=== PATIENT | female | born 1995 | race Hispanic/Latino ===

== ENCOUNTER 2018-01-17 12:28 | Inpatient (IN) | payer MEDICAID, OTHER, SELFPAY ==
[2018-01-17] MEDS ORDERED: Ondansetron PF 4 MG/2 ML Vial ONE (13:04)
[2018-01-17 13:10] LABS: Hemoglobin 7.9 g/dL (12.0-16.0); Mean Corpuscular HGB CONC 28.2 g/dL (32.0-36.0); Mean Corpuscular Hemoglobin 16.7 pg (25.0-35.0); Mean Corpuscular Volume 59.3 fL (78.0-98.0); Mean Platelet Volume 6.5 fL (7.4-10.4); Platelet Count 258 thou/uL (130-400); Red Blood Cell (RBC) Count 4.72 mill/uL (4.00-5.20); White Blood Cell (WBC) Count 24.8 thou/uL (4.8-10.8)
[2018-01-17 13:30] LABS: ALT (SGPT) 10 U/L (8-55); AST (SGOT) 16 U/L (5-34); Albumin 4.4 g/dL (3.5-5.0); Alkaline Phosphatase 80 U/L (40-150); Anion Gap 16 mmol/L (10-20); BUN (Urea Nitrogen) 10 mg/dL (7.0-18.7); Bilirubin, Total 1.3 mg/dL (0.2-1.2); Calc. Creatinine Clearance 0 mL/min (70-130); Calcium 9.6 mg/dL (7.8-10.44); Carbon Dioxide 21 mmol/L (22-29); Chloride 100 mmol/L (98-107); Estimated GFR-MDRD 75; Globulin 3.9 g/dL (2.4-3.5); Glucose 122 mg/dL (70-105); Lipase Less than 4 U/L (8-78); Potassium 3.5 mmol/L (3.5-5.1); Protein, Total 8.3 g/dL (6.0-8.3); Sodium 133 mmol/L (136-145)
[2018-01-17] MEDS ORDERED: ISOVUE-370 76%-LOCM 1 ML ONE (13:30)
[2018-01-17 13:35] LABS: Anisocytosis SLIGHT = 6-15 cells (100X) (0-5/hpf); Band 10 % (5-11); Elliptocytes SLIGHT = 2-5 cells (100X) (0-1/hpf); Hypochromia MODERATE=16-30 cells (100X) (0-5/hpf); Large Platelets SLIGHT; Lymphocytes 1 % (28-48); MDiff Complete? YES; Microcytosis MODERATE=15-30 cells (100X) (0-5/hpf); Monocytes 2 % (0-4); Neutrophil 86 % (31-61); Ovalocytes SLIGHT = 2-5 cells (100X) (0-1/hpf); PLT Morphology Comment Appears Adequate; Poikilocytosis SLIGHT = 6-15 cells (100X) (0-5/hpf); Polychromasia SLIGHT = 2-3 cells (100X) (0-2/hpf); Reactive Lymphocytes 1 % (0-10); Reflex for Review?? YES; Stomatocytes SLIGHT = 2-5 cells (100X) (0-1/hpf); Tear Drops SLIGHT = 2-5 cells (100X) (0-1/hpf)
[2018-01-17] MEDS ORDERED: Acetaminophen 500 MG TAB ONE (13:38)
[2018-01-17 13:39] LABS: Bilirubin Negative (Negative); Blood, Urine Moderate (Negative); Clarity CLOUDY (Clear); Glucose, Urine (Dipstick) Negative (Negative); Leukocyte Large (Negative); Nitrite Positive (Negative); Protein, Urine (Dipstick) 100 mg/dL (Neg-Trace); Specific Gravity, Urine 1.017 (1.002-1.036)
[2018-01-17 13:41] LABS: Bacteria/HPF 4+ HPF (None Seen); Hyaline Casts/LPF 0-3 HYALINE CAST LPF (0-3 Hyaline); Pathc Cast-AUWi Flag 0.14 (0-2.49)
[2018-01-17 13:44] LABS: Pregnancy Test - Urine (BHCG) Negative (Negative); Pregu Control Background? CLEAR/WHITE (CLR/WHITE); Pregu Control Bar Appear? YES (CONTROL BAR); Specific Gravity 1.017 (1.002-1.036)
--- NOTE | 2018-01-17 14:52 | CT ---
CT OF THE ABDOMEN AND PELVIS WITH CONTRAST: Date: 01/17/18 HISTORY: Right-sided abdominal pain that started three days ago. Fever. TECHNIQUE: Multiple contiguous axial images were obtained in a CT of the abdomen and pelvis with contrast. Coron al reformats were performed. FINDINGS: There is a tiger-striped appearance to the right kidney when compared to the left. Subtle surrounding stranding changes are seen. These findings are consistent with pyelonephritis. No hydronephrosis is seen on either side. The left kidney is unremarkable. The liver, gallbladder, adrenal glands, spleen, and pancreas are unremarkable. The large and small arlene wel are unremarkable. The appendix is unremarkable. The reproductive organs are unremarkable. The osseous structures, visualized inferior thorax, and abdominal wall soft tissues are unremarkable. IMPRESSION: Pyelonephritis of the right kidney. POS: JYOTI
[2018-01-17] MEDS ORDERED: Piperacillin/Tazobactam 4.5 GM VIAL ONE (15:01)
[2018-01-17] MEDS ORDERED: cefTRIAXone\\ROCEPHIN 2 GM VIAL ONE (15:01)
[2018-01-17] MEDS ORDERED: Acetaminophen 325 MG TAB PO PRN (17:07)
[2018-01-17] MEDS ORDERED: Ondansetron ODT 4 MG TAB SL PRN (17:07)
[2018-01-17] MEDS ORDERED: Ondansetron PF 4 MG/2 ML Vial IVP PRN ×2 (17:07→17:25)
[2018-01-17 17:09] LABS: Lactic Acid 1.3 mmol/L (0.5-2.2)
[2018-01-17] MEDS ORDERED: Guaifenesin DM 100-10/5 ML UDCUP PO PRN (17:25)
[2018-01-17] MEDS: Sodium Chloride 0.9% 1,000 ML IV SCH (18:14)
[2018-01-17 18:23] LABS: Iron 9 ug/dL (50-170); Iron Binding Capacity, Total 395 mcg/dL (265-497)
[2018-01-17] MEDS: Acetaminophen 325 MG TAB PO PRN (21:14)
[2018-01-17] MEDS: Famotidine 20 MG TAB PO SCH (21:15)
[2018-01-17] MEDS: Cefepime 1 GM in Sodium Chloride 0.9% 100 ML IVPB SCH (21:17)
[2018-01-18 04:36] LABS: Anion Gap 11 mmol/L (10-20); BUN (Urea Nitrogen) 9 mg/dL (7.0-18.7); Calc. Creatinine Clearance 0 mL/min (70-130); Calcium 8.3 mg/dL (7.8-10.44); Carbon Dioxide 19 mmol/L (22-29); Chloride 109 mmol/L (98-107); Estimated GFR-MDRD Greater than 90; Glucose 83 mg/dL (70-105); Potassium 3.1 mmol/L (3.5-5.1); Sodium 136 mmol/L (136-145)
[2018-01-18 04:38] LABS: Band 11 % (5-11); Hemoglobin 6.1 g/dL (12.0-16.0); Hypochromia SLIGHT = 6-15 cells (100X) (0-5/hpf); Lymphocytes 5 % (28-48); MDiff Complete? YES; Mean Corpuscular HGB CONC 27.5 g/dL (32.0-36.0); Mean Corpuscular Hemoglobin 16.6 pg (25.0-35.0); Mean Corpuscular Volume 60.2 fL (78.0-98.0); Mean Platelet Volume 6.5 fL (7.4-10.4); Monocytes 10 % (0-4); Neutrophil 74 % (31-61); PLT Morphology Comment Appears Adequate; Platelet Count 208 thou/uL (130-400); Polychromasia SLIGHT = 2-3 cells (100X) (0-2/hpf); RBC Distribution Width 17.8 % (11.5-14.5); Red Blood Cell (RBC) Count 3.68 mill/uL (4.00-5.20); White Blood Cell (WBC) Count 25.6 thou/uL (4.8-10.8)
[2018-01-18 07:26] LABS: Reticulocyte Count 1.1 % (0.5-1.5)
[2018-01-18] MEDS: Sodium Chloride 0.9% 1,000 ML IV SCH (07:38)
--- NOTE | 2018-01-18 07:40 | HP ---
REASON FOR ADMISSION: Right-sided pyelonephritis, sepsis. HISTORY OF PRESENTING ILLNESS: The patient gives history of abdominal pain in the right lower quadra nt, radiating to the back. This was 10/10 in intensity and was colicky in nature. She has been gett ing this off and on from last 3 days. The patient has had severe nausea and has been vomiting from t he last 2 days now. No complaints of diarrhea. Has some urinary frequency, but no urgency as such. The patient had fever at home and had fever of 103 here in the ER. No prior history of recurrent ur inary tract infections. No prior history of stones in the urinary tract. PAST MEDICAL AND SURGICAL HISTORY: The patient has chronic anemia, history of asthma. CURRENT MEDICATIONS: vitamin and ferrous sulfate. ALLERGIES: No known drug allergies. PERSONAL HISTORY: Smokes 5-6 cigarettes a day, does not abuse alcohol or drugs. FAMILY HISTORY: Mother has history of ovarian cyst and gallstones. She does not know much about her father. CODE STATUS: FULL. REVIEW OF SYSTEMS: The following complete review of systems was negative, unless otherwise mentioned in the HPI or below: Constitutional: Weight loss or gain, ability to conduct usual activities. Sk in: Rash, itching. Eyes: Double vision, pain. ENT/Mouth: Nose bleeding, neck stiffness, pain, te nderness. Cardiovascular: Palpitations, dyspnea on exertion, orthopnea. Respiratory: Shortness of breath, wheezing, cough, hemoptysis, fever or night sweats. Gastrointestinal: Poor appetite, abdom inal pain, heartburn, nausea, vomiting, constipation, or diarrhea. Genitourinary: Urgency, frequenc y, dysuria, nocturia. Musculoskeletal: Pain, swelling. Neurologic/Psychiatric: Anxiety, depressio n. Allergy/Immunologic: Skin rash, bleeding tendency. PHYSICAL EXAMINATION: GENERAL: The patient is a 22-year-old female, who is currently not in any acute distress. VITAL SIGNS: Blood pressure 128/78, pulse 120 per minute, respiratory rate 20 per minute, temperatur e 103.2 degrees Fahrenheit, saturating 99% on room air. NECK: Supple, no elevated JVD. HEENT: Eyes: Extraocular muscles intact, pupils reacting to light. Oral cavity: Mucous membranes are dry. No exudates or congestion. CARDIOVASCULAR SYSTEM: S1, S2 heard. Regular rhythm. RESPIRATORY SYSTEM: Air entry 2+ bilateral. No rales or rhonchi. ABDOMEN: Soft, bowel sounds heard. There is mild tenderness in the right lower quadrant. No rigidi ty or guarding. There is mild CVA tenderness on the right. EXTREMITIES: No peripheral edema or calf tenderness. VASCULAR SYSTEM: Peripheral pulses 1+ bilateral. No ischemic ulcerations or gangrene. CENTRAL NERVOUS SYSTEM: No gross focal deficits noted. The patient is alert, awake, oriented well. PSYCHIATRIC SYSTEM: The patient's mood is euthymic. No hallucinations or delusions. LABORATORY AND X-RAY FINDINGS: CT of the abdomen and pelvis with contrast done shows pyelonephritis of the right kidney. UA shows positive nitrite, large leukocyte esterase, greater than 50 wbc's and 4+ bacteria. Urine test is negative. Influenza A and B antigens are negative. White coun t of 24, H&H 7.9 and 28, platelet count 258 with 86% neutrophils and 10% bands. Sodium 133, serum bi carbonate 21, BUN 10, creatinine 0.9. Serum glucose 122. Lactic acid 2.5, albumin is 4.4, lipase is less than 4. CLINICAL IMPRESSION AND PLAN: The patient will be admitted to medical floor for sepsis, right pyelon ephritis. She will be on normal saline at 80 mL per hour. Blood and urine cultures have been obtain ed. She will be on cefepime and Levaquin for dual gram negative coverage and for possible resistant Pseudomonas. We will obtain iron studies and continue her ferrous sulfate as before. We will contin ue to closely monitor her on medical floor. Code status was discussed and she is a FULL CODE.
[2018-01-18 08:08] LABS: Folate (Folic Acid) 9.4 ng/mL (7.0-31.4)
[2018-01-18] MEDS: Prenatal Vitamin 1 TAB PO SCH (08:40)
[2018-01-18] MEDS: Famotidine 20 MG TAB PO SCH ×2 (08:40→19:30)
[2018-01-18] MEDS: Enoxaparin Sodium 40 MG/0.4 ML SYRINGE SC SCH (08:40)
[2018-01-18] MEDS: Cefepime 1 GM in Sodium Chloride 0.9% 100 ML IVPB SCH ×2 (08:41→19:30)
[2018-01-18] MEDS: Ferrous Sulfate 325 MG TAB PO SCH (08:41)
[2018-01-18] MEDS: Acetaminophen 325 MG TAB PO PRN ×2 (08:44→18:30)
--- NOTE | 2018-01-18 11:39 | PDOC.PN ---
- Subjective Encounter Start Date: 01/18/18 Encounter Start Time: 11:00 Subjective: abd pain is better, no nausea but has loss of appetite -: no sob or chest pain -: last delivery was more than 1 yr ago - Objective Resuscitation Status: Resuscitation Status FULL:Full Resuscitation MAR Reviewed: Yes Vital Signs & Weight: Vital Signs (12 hours) Temp Pulse Resp BP BP Pulse Ox 01/18/18 11:23 98.7 F 87 16 96/58 L 100 01/18/18 08:00 98 01/18/18 07:26 98.6 F 96 16 96/60 98 01/18/18 04:00 98.1 F 87 16 99/61 99 01/18/18 00:00 98.5 F 96 16 100/53 L 99 Weight Weight 3.704 oz I&O: 01/17/18 01/18/18 01/19/18 06:59 06:59 06:59 Intake Total 120 1160 Balance 120 1160 Result Diagrams: 01/18/18 05:11 01/18/18 03:38 Phys Exam - Physical Examination HEENT: PERRLA, moist MMs Neck: no JVD, supple Respiratory: no wheezing, no rales Cardiovascular: RRR, no significant murmur Gastrointestinal: soft, no distention, positive bowel sounds Musculoskeletal: no edema, pulses present Neurological: non-focal, moves all 4 limbs Psychiatric: normal affect, A&O x 3 Dx/Plan (1) Sepsis Code(s): A41.9 - SEPSIS, UNSPECIFIED ORGANISM Status: Acute Qualifiers: Sepsis type: Escherichia coli Qualified Code(s): A41.51 - Sepsis due to Escherichia coli [E. coli] (2) severe iron def anemia Status: Chronic (3) Bacteremia Code(s): R78.81 - BACTEREMIA Status: Acute Comment: e.coli (4) Pyelonephritis Code(s): N12 - TUBULO-INTERSTITIAL NEPHRITIS, NOT SPCF ACUTE OR CHRONIC Status: Acute Comment: right side - Plan is on cefepime and levaquin -: await final cultures -: 1 unit prbc transfusion today -: oral iron bid with vit c -: encourage po intake, to amb as tolerated * . Review of Systems - Medications/Allergies Allergies/Adverse Reactions: Allergies Allergy/AdvReac Type Severity Reaction Status Date / Time No Known Allergies Allergy Verified 05/15/14 19:54 Medications: Current Medications Acetaminophen (Tylenol) 650 mg PO Q4H PRN PRN Reason: Headache/Fever/Mild Pain (1-3) Last Admin: 01/18/18 08:44 Dose: 650 mg Enoxaparin Sodium (Lovenox) 40 mg SC 0900 [facility] Last Admin: 01/18/18 08:40 Dose: 40 mg Famotidine (Pepcid) 20 mg PO BID [facility] Last Admin: 01/18/18 08:40 Dose: 20 mg Ferrous Sulfate (Feosol) 325 mg PO QAM-[facility] Last Admin: 01/18/18 08:41 Dose: 325 mg Guaifenesin/Dextromethorphan (Robitussin Dm) 15 ml PO Q4H PRN PRN Reason: Cough Cefepime HCl 1 gm/ Sodium (Chloride) 100 mls @ 200 mls/hr IVPB 0800,2000 [facility] Last Admin: 01/18/18 08:41 Dose: 100 mls Levofloxacin 500 mg/ Device 100 mls @ 100 mls/hr IVPB 1800 [facility] Last Admin: 01/17/18 18:14 Dose: 100 mls Sodium Chloride (Normal Saline 0.9%) 1,000 mls @ 80 mls/hr IV .[id number] [facility] Stop: 01/18/18 18:29 Last Admin: 01/18/18 07:38 Dose: Not Given Ondansetron HCl (Zofran) 4 mg IVP Q6H PRN PRN Reason: Nausea/Vomiting Multivit/Folic Acid/Iron ( Vitamin) 1 tab PO DAILY [facility] Last Admin: 01/18/18 08:40 Dose: 1 tab
[2018-01-18 13:59] VITALS: BMI 21.2
[2018-01-18] MEDS ORDERED: GoLYTELY 4,000 ml Bottle PO SCH (14:00)
--- NOTE | 2018-01-18 14:10 | CON ---
DATE OF CONSULTATION: 01/18/2018. REQUESTING PHYSICIAN: Dr. Blount. REASON FOR CONSULTATION: Severe anemia, possible gastrointestinal bleed. HISTORY OF PRESENT ILLNESS: Ms. Ethel Orozco is a very pleasant 22-year-old woman who was admitte d to the hospital yesterday with acute right-sided pyelonephritis. She had presented with fevers, na usea, weakness, and right-sided abdominal pain over the prior 3 days. Upon admission yesterday, a CT of the abdomen and pelvis demonstrated findings characteristic of right-sided pyelonephritis, but no other significant abnormalities. She was also noted on laboratories to have a severe leukocytosis t o 24.8 and hemoglobin 7.9 with MCV 59.3. This morning, following antibiotics and IV fluids overnight , her hemoglobin declined further rather sharply to 6.0. This is in the absence of any overt bleedin g from anywhere. Looking back, the patient does have a chronic microcytic anemia. Hemoglobin was no claudette to be 5.1 at the delivery of one of her children back in 04/2016. She was told that her anemia w as probably secondary to . She was supposed to be taking oral iron all this time, but she s tates she really has not been doing that. She does like to eat a lot of ice. She denies any hematem esis, hemoptysis, epistaxis, gross hematuria, melena or hematochezia. Her menses are regular and mon thly, though she says they are often quite heavy. Iron studies here do show borderline iron deficien cy with actually normal ferritin level of 34.83, but low iron of 9 and only 2% iron saturation. Curr ently, the patient's abdominal pain is somewhat improved and she is afebrile today. She does complai n of nausea and loss of appetite. REVIEW OF SYSTEMS: Full review of systems including constitutional, head, eyes, ears, nose, throat, GI, , cardiovascular, respiratory, musculoskeletal, and neurologic systems negative except as noted in HPI. PAST MEDICAL HISTORY: Chronic iron deficiency anemia, asthma. ALLERGIES: No known drug allergies. OUTPATIENT MEDICATIONS: 1. vitamin. 2. Ferrous sulfate (patient states she really has not been taking this over the past year). SOCIAL HISTORY: She smokes 5-6 cigarettes a day. No alcohol or drug abuse. FAMILY HISTORY: Her mother had an ovarian cyst and gallstones. PHYSICAL EXAMINATION: VITAL SIGNS: Temperature 98.7, pulse 87, blood pressure 96/58, 100% oxygen saturation on room air. GENERAL: A petite, 22-year-old woman sitting up in bed comfortably in no distress. SKIN: She is a bit pale, no jaundice, no rash visible or palpable. EYES: No scleral icterus. Extraocular movements intact. ENT: Mucous membranes moist, no oral lesions. LYMPH: No submandibular, supraclavicular lymphadenopathy. THYROID: Nontender to palpation. HEART: Regular rate and rhythm. LUNGS: Clear to auscultation bilaterally. ABDOMEN: Bowel sounds present, soft, some tenderness to palpation on the right side of the abdomen, but no guarding, rebound tenderness. EXTREMITIES: No peripheral edema. VESSELS: Radial pulses 2+ bilaterally. NEUROLOGICAL: Cranial nerves II through XII intact bilaterally. No focal deficits. LABORATORY STUDIES: Admission hemoglobin was 7.9 with MCV 59.3, hemoglobin dropped to 6.0 this morni ng, hematocrit is 21.1, WBC 25.6, platelets 208. Peripheral smear shows microcytosis and hypochromia . Sodium 136, potassium 3.1, BUN 9, creatinine 0.70. Lactic acid initially 2.5, now down to 1.3. F erritin is 34.83. Iron is 9. Iron percent saturation is 2, TIBC is 275. Vitamin B12 normal at 321. Folic acid normal at 9.4. Urinalysis shows greater than 50 WBCs and 11-20 RBCs. Urine cultures po sitive for E. coli. IMAGING STUDIES: CT of the abdomen and pelvis performed yesterday on admission demonstrated characte ristic changes of right-sided pyelonephritis. The CT is otherwise normal showing normal liver, gallb ladder, spleen, pancreas, large and small bowel, appendix and reproductive organs. ASSESSMENT AND PLAN: 1. Chronic iron deficiency anemia, severe. 2. Acute right-sided pyelonephritis. The patient's labs are indeed consistent with profound iron de ficiency. Need to consider also the possibility of a hemoglobinopathy. Consider getting a hemoglobi n electrophoresis, though I would wait on this given that she has just had a blood transfusion today. I discussed with the patient that usually iron deficiency anemia at this age is secondary to chroni c heavy menstrual losses. Note that she has not been on iron supplementation as it has been recommen ded in the past. She does not have any overt gastrointestinal bleeding, but we certainly cannot rule out an occult gastrointestinal bleeding lesion. I do think it would be worthwhile to perform EGD an d colonoscopy at some point to rule out occult gastrointestinal bleeding lesion. The patient would p refer to proceed with this during this hospitalization, so we will administer bowel preparation tonig ht and plan for EGD and colonoscopy tomorrow morning. Thank you for the consultation. Please call any time with questions or concerns.
[2018-01-19] MEDS: Acetaminophen 325 MG TAB PO PRN (03:08)
[2018-01-19] MEDS ORDERED: Midazolam HCl 2 mg/2 ml Vial ONE (07:52)
[2018-01-19] MEDS: Cefepime 1 GM in Sodium Chloride 0.9% 100 ML IVPB SCH (08:04)
[2018-01-19] MEDS: Famotidine 20 MG TAB PO SCH ×2 (08:20→20:01)
[2018-01-19] MEDS: Enoxaparin Sodium 40 MG/0.4 ML SYRINGE SC SCH (08:20)
[2018-01-19] MEDS: Prenatal Vitamin 1 TAB PO SCH (08:20)
[2018-01-19] MEDS: Ferrous Sulfate 325 MG TAB PO SCH (08:20)
--- NOTE | 2018-01-19 08:40 | PRG ---
DATE OF SERVICE: 01/19/2018 GI INPATIENT DAILY PROGRESS NOTE SUBJECTIVE: Ms. Orozco had kind of a rough night. She did not sleep well. She has continued to be nauseated and have a bit of right-sided abdominal pain. She also spiked fever last night up to 102.2. She remains on antibiotics. She drinks very little of her bowel prep and did not have good results with this. OBJECTIVE: VITAL SIGNS: Temperature 99.7, T-max overnight was 102.8, pulse 85, blood pressure 117/77, 99% oxygen saturation on room air. GENERAL: A 22-year-old woman in no acute distress, appearing, tired, but alert. HEART: Regular rate and rhythm. LUNGS: Clear to auscultation bilaterally. ABDOMEN: Bowel sounds present, soft, some tenderness to palpation in the right abdomen. No guarding, rebound tenderness. EXTREMITIES: No peripheral edema. LABORATORY STUDIES: No new labs back this morning. ASSESSMENT AND PLAN: 1. Severe iron deficiency anemia. 2. Acute pyelonephritis. Patient continued to spike fevers last night and did not drink her bowel prep. We will need to delay EGD/colonoscopy for another day. I discussed this with the patient who is in agreement. If feeling better this afternoon, we will try to drink the bowel prep this evening for procedure tomorrow. [facility]
[2018-01-19 09:40] LABS: Anion Gap 13 mmol/L (10-20); BUN (Urea Nitrogen) 7 mg/dL (7.0-18.7); Calc. Creatinine Clearance 115 mL/min (70-130); Calcium 8.5 mg/dL (7.8-10.44); Carbon Dioxide 16 mmol/L (22-29); Chloride 109 mmol/L (98-107); Estimated GFR-MDRD Greater than 90; Glucose 85 mg/dL (70-105); Potassium 3.2 mmol/L (3.5-5.1); Sodium 135 mmol/L (136-145)
--- NOTE | 2018-01-19 11:39 | PDOC.PN ---
- Subjective Encounter Start Date: 01/19/18 Encounter Start Time: 07:25 Subjective: no nausea, abd pain is better -: had fever overnight - Objective Resuscitation Status: Resuscitation Status FULL:Full Resuscitation MAR Reviewed: Yes Vital Signs & Weight: Vital Signs (12 hours) Temp Pulse Resp BP Pulse Ox 01/19/18 11:12 98.8 F 69 16 123/81 99 01/19/18 08:00 99 01/19/18 07:30 99.0 F 82 16 112/74 99 01/19/18 05:06 99.7 F H 01/19/18 03:57 101.1 F H 01/19/18 03:10 102.2 F H 85 20 117/77 99 Weight Admit Weight 112 lb 11.2 oz Weight 112 lb 11.2 oz I&O: 01/18/18 01/19/18 01/20/18 06:59 06:59 05:59 Intake Total 120 1760 Balance 120 1760 Result Diagrams: 01/18/18 05:11 01/19/18 09:00 Phys Exam - Physical Examination HEENT: PERRLA, moist MMs Neck: no JVD, supple Respiratory: no wheezing, no rales Cardiovascular: RRR, no significant murmur Gastrointestinal: soft, no distention, positive bowel sounds Musculoskeletal: no edema, pulses present Neurological: non-focal, moves all 4 limbs Psychiatric: normal affect, A&O x 3 Dx/Plan (1) Sepsis Code(s): A41.9 - SEPSIS, UNSPECIFIED ORGANISM Status: Acute Qualifiers: Sepsis type: Escherichia coli Qualified Code(s): A41.51 - Sepsis due to Escherichia coli [E. coli] (2) severe iron def anemia Status: Chronic (3) Bacteremia Code(s): R78.81 - BACTEREMIA Status: Acute Comment: e.coli (4) Pyelonephritis Code(s): N12 - TUBULO-INTERSTITIAL NEPHRITIS, NOT SPCF ACUTE OR CHRONIC Status: Acute Comment: right side - Plan recieved 2 u prbc , encourage po intake -: continue levaquin based on cultures -: tmax of 102 last 24hrs -: for egd/colon when stable -: d/w * . Review of Systems - Medications/Allergies Allergies/Adverse Reactions: Allergies Allergy/AdvReac Type Severity Reaction Status Date / Time No Known Allergies Allergy Verified 05/15/14 19:54 Medications: Current Medications Acetaminophen (Tylenol) 650 mg PO Q4H PRN PRN Reason: Headache/Fever/Mild Pain (1-3) Last Admin: 01/19/18 03:08 Dose: 650 mg Enoxaparin Sodium (Lovenox) 40 mg SC 0900 [facility] Last Admin: 01/19/18 08:20 Dose: 40 mg Famotidine (Pepcid) 20 mg PO BID [facility] Last Admin: 01/19/18 08:20 Dose: 20 mg Ferrous Sulfate (Feosol) 325 mg PO QA-[facility] Last Admin: 01/19/18 08:20 Dose: 325 mg Guaifenesin/Dextromethorphan (Robitussin Dm) 15 ml PO Q4H PRN PRN Reason: Cough Levofloxacin 500 mg/ Device 100 mls @ 100 mls/hr IVPB 1800 [facility] Last Admin: 01/18/18 17:35 Dose: 100 mls Ondansetron HCl (Zofran) 4 mg IVP Q6H PRN PRN Reason: Nausea/Vomiting Polyethylene Glycol/Electrolytes (Golytely) 4,000 ml PO ONE [facility] Stop: 01/19/18 23:00 Multivit/Folic Acid/Iron ( Vitamin) 1 tab PO DAILY [facility] Last Admin: 01/19/18 08:20 Dose: 1 tab
[2018-01-19 11:49] LABS: #Basophils 0.1 thou/uL (0.0-0.2); #Lymphocytes 1.6 thou/uL (1.20-3.40); #Monocytes 2.4 thou/uL (0.11-0.59); #Neutrophils 14.7 thou/uL (1.40-6.50); %Basophils 0.3 % (0.0-1.0); %Eosinophils 0.2 % (0.0-10.0); %Lymphocytes 8.4 % (28.0-48.0); %Monocytes 12.9 % (0.0-4.0); %Neutrophils 78.2 % (31.0-61.0); Anisocytosis MODERATE=16-30 cells (100X) (0-5/hpf); Hemoglobin 9.2 g/dL (12.0-16.0); Hypochromia SLIGHT = 6-15 cells (100X) (0-5/hpf); Large Platelets SLIGHT; MDiff Complete? YES; Mean Corpuscular HGB CONC 29.3 g/dL (32.0-36.0); Microcytosis SLIGHT = 6-15 cells (100X) (0-5/hpf); PLT Morphology Comment Appears Adequate; Platelet Count 212 thou/uL (130-400); Polychromasia SLIGHT = 2-3 cells (100X) (0-2/hpf); Red Blood Cell (RBC) Count 4.63 mill/uL (4.00-5.20); White Blood Cell (WBC) Count 18.7 thou/uL (4.8-10.8)
[2018-01-19] MEDS ORDERED: GoLYTELY 4,000 ml Bottle PO SCH (16:00)
[2018-01-20] MEDS: Acetaminophen 325 MG TAB PO PRN (00:58)
[2018-01-20 04:53] LABS: Band 3 % (5-11); Hemoglobin 9.1 g/dL (12.0-16.0); Hypochromia SLIGHT = 6-15 cells (100X) (0-5/hpf); Lymphocytes 17 % (28-48); MDiff Complete? YES; Mean Corpuscular HGB CONC 29.9 g/dL (32.0-36.0); Mean Corpuscular Hemoglobin 20.5 pg (25.0-35.0); Mean Corpuscular Volume 68.5 fL (78.0-98.0); Mean Platelet Volume 6.8 fL (7.4-10.4); Microcytosis SLIGHT = 6-15 cells (100X) (0-5/hpf); Monocytes 13 % (0-4); Neutrophil 67 % (31-61); PLT Morphology Comment Appears Adequate; Platelet Count 222 thou/uL (130-400); RBC Distribution Width 25.3 % (11.5-14.5); Red Blood Cell (RBC) Count 4.44 mill/uL (4.00-5.20); White Blood Cell (WBC) Count 9.3 thou/uL (4.8-10.8)
[2018-01-20 04:59] LABS: Anion Gap 12 mmol/L (10-20); BUN (Urea Nitrogen) 6 mg/dL (7.0-18.7); Calc. Creatinine Clearance 117 mL/min (70-130); Calcium 8.3 mg/dL (7.8-10.44); Carbon Dioxide 19 mmol/L (22-29); Chloride 107 mmol/L (98-107); Estimated GFR-MDRD Greater than 90; Glucose 72 mg/dL (70-105); Sodium 135 mmol/L (136-145)
--- NOTE | 2018-01-20 09:17 | OP ---
DATE OF PROCEDURE: 01/20/2018. SURGEON: Ryan Sheth M.D. [employer] SURGEON: None. PROCEDURES PERFORMED: 1. EGD with biopsies. 2. Colonoscopy, diagnostic. INDICATION: Severe iron deficiency anemia. MEDICATIONS: See anesthesia record. FINDINGS: After discussion of the risks, benefits and alternatives of the procedure, informed consen t was obtained and witnessed. Pre-endoscopic cardiopulmonary examination was satisfactory. DESCRIPTION OF PROCEDURE: Timeout was performed before sedation was achieved. Sedation was achieved with anesthesia assistance in the endoscopy unit. A Pentax adult upper endoscope was placed into th e oropharynx and passed through the cricopharyngeus under direct visualization. The esophageal mucos a appeared normal throughout with a normal-appearing Z-line. The endoscope was advanced into the sto mach. Forward and retroflexed views of the entire gastric mucosa were obtained. The gastric mucosa appeared normal throughout. The endoscope was advanced beyond the pylorus and into the first and sec ond portions of the duodenum, which also appeared normal. I obtained biopsies from the normal appear ing duodenal mucosa to rule out celiac disease. The upper endoscope was completely withdrawn and the patient was repositioned. Digital rectal exam was performed, which was unremarkable. A Pentax adult colonoscope was inserted i nto the anus and passed forward to the cecum in the usual fashion. The cecal base was identified by the appendiceal orifice as well as the ileocecal valve. The terminal ileum was intubated and the ile al mucosa appeared normal. The colonoscope was then slowly withdrawn in a gradual and circumferentia l manner with careful examination of the entire colonic mucosa. The quality of the prep was good. T he colonic mucosa appeared normal throughout. There was no evidence of any mass lesions, polyps, or bleeding lesions. No old blood or active bleeding in the colon. Retroflexion in the rectum was unre markable. The colonoscope was completely withdrawn and the patient allowed to recover. The patient tolerated the procedure well. There were no immediate post-procedure complications. IMPRESSION: 1. Normal esophagogastroduodenoscopy. Duodenal biopsies obtained to rule out celiac disease. 2. Normal colonoscopy to the terminal ileum. RECOMMENDATIONS: 1. Follow up pathology results of duodenal biopsies. 2. Iron supplementation. 3. Regular diet. GI will sign off. Please call back with any questions or concerns.
[2018-01-20] MEDS: Enoxaparin Sodium 40 MG/0.4 ML SYRINGE SC SCH (10:03)
[2018-01-20] MEDS: Prenatal Vitamin 1 TAB PO SCH (10:03)
[2018-01-20] MEDS: Ferrous Sulfate 325 MG TAB PO SCH (10:03)
[2018-01-20] MEDS: Famotidine 20 MG TAB PO SCH ×2 (10:03→20:00)
--- NOTE | 2018-01-20 10:06 | PDOC.PN ---
- Subjective Encounter Start Date: 01/20/18 Encounter Start Time: 08:45 Subjective: feels better this am - Objective Resuscitation Status: Resuscitation Status FULL:Full Resuscitation MAR Reviewed: Yes Vital Signs & Weight: Vital Signs (12 hours) Temp Pulse Resp BP Pulse Ox 01/20/18 09:05 98.1 F 71 20 114/75 100 01/20/18 07:16 100 01/20/18 07:15 98.6 F 70 20 122/75 100 01/20/18 04:00 98.3 F 01/20/18 00:23 101.3 F H Weight Admit Weight 112 lb 11.2 oz Weight 112 lb 11.2 oz I&O: 01/19/18 01/20/18 01/21/18 07:59 06:59 06:59 Intake Total Balance Result Diagrams: 01/20/18 04:17 01/20/18 04:17 Phys Exam - Physical Examination HEENT: PERRLA, moist MMs Neck: no JVD, supple Respiratory: no wheezing, no rales Cardiovascular: RRR, no significant murmur Gastrointestinal: soft, non-tender, no distention, positive bowel sounds Musculoskeletal: no edema, pulses present Neurological: non-focal, moves all 4 limbs Psychiatric: normal affect, A&O x 3 Dx/Plan (1) Sepsis Code(s): A41.9 - SEPSIS, UNSPECIFIED ORGANISM Status: Acute Qualifiers: Sepsis type: Escherichia coli Qualified Code(s): A41.51 - Sepsis due to Escherichia coli [E. coli] (2) severe iron def anemia Status: Chronic (3) Bacteremia Code(s): R78.81 - BACTEREMIA Status: Acute Comment: e.coli (4) Pyelonephritis Code(s): N12 - TUBULO-INTERSTITIAL NEPHRITIS, NOT SPCF ACUTE OR CHRONIC Status: Acute Comment: right side - Plan egd/colonoscopy no active bleeding -: continue levaquin -: oral iron -: dc plan in 24hrs, has been afebrile last 24hrs now * . Review of Systems - Medications/Allergies Allergies/Adverse Reactions: Allergies Allergy/AdvReac Type Severity Reaction Status Date / Time No Known Allergies Allergy Verified 05/15/14 19:54 Medications: Current Medications Acetaminophen (Tylenol) 650 mg PO Q4H PRN PRN Reason: Headache/Fever/Mild Pain (1-3) Last Admin: 11/04/18 00:58 Dose: 650 mg Enoxaparin Sodium (Lovenox) 40 mg SC 0900 [facility] Last Admin: 01/20/18 10:03 Dose: 40 mg Famotidine (Pepcid) 20 mg PO BID [facility] Last Admin: 01/20/18 10:03 Dose: 20 mg Ferrous Sulfate (Feosol) 325 mg PO QAM-[facility] Last Admin: 01/20/18 10:03 Dose: 325 mg Guaifenesin/Dextromethorphan (Robitussin Dm) 15 ml PO Q4H PRN PRN Reason: Cough Levofloxacin 500 mg/ Device 100 mls @ 100 mls/hr IVPB 1800 [facility] Last Admin: 01/19/18 17:13 Dose: 100 mls Ondansetron HCl (Zofran) 4 mg IVP Q6H PRN PRN Reason: Nausea/Vomiting Last Admin: 01/19/18 20:01 Dose: 4 mg Multivit/Folic Acid/Iron ( Vitamin) 1 tab PO DAILY [facility] Last Admin: 01/20/18 10:03 Dose: 1 tab
[2018-01-20] MEDS ORDERED: PROPOFOL 200 MG/20 ML VIAL ONE (14:41)
[2018-01-21] MEDS: Famotidine 20 MG TAB PO SCH (08:46)
[2018-01-21] MEDS: Enoxaparin Sodium 40 MG/0.4 ML SYRINGE SC SCH (08:46)
[2018-01-21] MEDS: Ferrous Sulfate 325 MG TAB PO SCH (08:46)
[2018-01-21] MEDS: Prenatal Vitamin 1 TAB PO SCH (08:47)
[2018-01-21 10:36] VITALS: BP 117/76; TEMP 98.2
--- NOTE | 2018-01-21 11:00 | PDOC.PN ---
- Subjective Encounter Start Date: 01/21/18 Encounter Start Time: 09:00 Subjective: feels good, no fever or nausea or abd pain - Objective Resuscitation Status: Resuscitation Status FULL:Full Resuscitation MAR Reviewed: Yes Vital Signs & Weight: Vital Signs (12 hours) Temp Pulse Resp BP BP Pulse Ox 01/21/18 10:35 98.2 F 74 16 117/76 100 01/21/18 08:30 98.7 F 75 16 117/70 99 01/21/18 08:00 99 01/21/18 03:52 98.3 F Weight Admit Weight 112 lb 11.2 oz Weight 112 lb 11.2 oz I&O: 01/20/18 01/21/18 01/22/18 06:59 06:59 06:59 Intake Total 850 Balance 850 Result Diagrams: 01/20/18 04:17 01/20/18 04:17 Phys Exam - Physical Examination HEENT: PERRLA, moist MMs Neck: no JVD, supple Respiratory: no wheezing, no rales Cardiovascular: RRR, no significant murmur Gastrointestinal: soft, non-tender, positive bowel sounds Musculoskeletal: no edema, pulses present Neurological: non-focal, moves all 4 limbs Psychiatric: normal affect, A&O x 3 Dx/Plan (1) Sepsis Code(s): A41.9 - SEPSIS, UNSPECIFIED ORGANISM Status: Resolved Qualifiers: Sepsis type: Escherichia coli Qualified Code(s): A41.51 - Sepsis due to Escherichia coli [E. coli] (2) severe iron def anemia Status: Chronic (3) Bacteremia Code(s): R78.81 - BACTEREMIA Status: Acute Comment: e.coli (4) Pyelonephritis Code(s): N12 - TUBULO-INTERSTITIAL NEPHRITIS, NOT SPCF ACUTE OR CHRONIC Status: Acute Comment: right side - Plan hemostable -: dc plan home -: to use control until her Hb comes up till 3 months * .
--- NOTE | 2018-01-22 00:43 | DIS ---
DATE OF ADMISSION: 01/17/2018 DATE OF DISCHARGE: 01/21/2018 DISCHARGE DISPOSITION: To home. PRIMARY DISCHARGE DIAGNOSES: Right-sided pyelonephritis with sepsis and E. coli bacteremia, severe i jessica-deficiency anemia. PROCEDURES DONE DURING HOSPITALIZATION: Patient has had abdominal and pelvic CAT scan done, which sh owed pyelonephritis of right kidney. Upper and lower endoscopies done, have not revealed any bleedin g source. Duodenal biopsies were obtained to rule out celiac disease. Colonoscopy was normal to [facility]. Blood cultures 1/2 grew E. coli sensitive to quinolones, had similar sensitivity pattern w ith urine culture. Influenza A and B antigens were negative. Had a white count of 24,000 with 10% b ands on the day of admission. Discharge white count is 9, H&H was 6.1 and 22 received 2 units of pac ked cell transfusion with discharge H&H of 9 and 30, serum iron was 9, ferritin 23. DISCHARGE MEDICATIONS: Ferrous sulfate 325 mg p.o. twice daily, vitamin 1 tab daily, Levaqu in 500 mg p.o. daily for another 10 days. ALLERGIES: No known drug allergies. INPATIENT CONSULTS: Dr. Ryan Sheth for gastroenterology. DISCHARGE PLAN: Patient to follow up with primary care physician in 1 week. BRIEF COURSE DURING HOSPITALIZATION: Patient initially came in with complaints of abdominal pain, na usea, and vomiting. Initial CAT scan revealed right pyelonephritis with her urinalysis showing signs of urinary tract infection. Patient was also septic with elevated temperature. She also had bandem ia with white count of 24,000. Patient was placed on broad spectrum IV antibiotics. A blood culture grew E. coli one of 2 and urine culture grew the same organism with sensitivity profiles. In view o f severe iron deficiency anemia, patient was given a total of 2 units of packed cell transfusion with hemoglobin of 6. Patient has severe iron deficiency anemia and has been placed on replacement thera py. She also had upper and lower endoscopies done, which have not revealed any acute etiology. She has remained hemodynamically stable. Patient is advised to continue taking iron supplements with nut ritional diet to help recover from her severe iron deficiency anemia. She has been advised and couns eled to use control pills for the next 3 months until her hemoglobin comes up. Prior to discha e, she is ambulating and eating well. Please see a [id number] documentation on [facility] for the day of discharge.
== END 2018-01-21 10:49 | disposition home or self-care (01) | DRG 872 ==
LOC: ERS 12:28 → T4-A 17:02
PROVIDERS: ADMIT Internal Medicine; ATTEND Internal Medicine
PROC: 30233N1 Transfusion of Nonautologous Red Blood Cells into Peripheral Vein, Percutaneous Approach (ICD-10-PCS; 2018-01-18)
PROC: 0DB98ZX Excision of Duodenum, Via Natural or Artificial Opening Endoscopic, Diagnostic (ICD-10-PCS; principal; 2018-01-20)
PROC: 0DJD8ZZ Inspection of Lower Intestinal Tract, Via Natural or Artificial Opening Endoscopic (ICD-10-PCS; 2018-01-20)
DX: A41.51 Sepsis due to Escherichia coli [E. coli] (principal); N10 Acute pyelonephritis; J45.909 Unspecified asthma, uncomplicated; F17.210 Nicotine dependence, cigarettes, uncomplicated; F41.9 Anxiety disorder, unspecified; F32.9 Major depressive disorder, single episode, unspecified; D50.9 Iron deficiency anemia, unspecified
CPT/HCPCS: 36415; 36430; 74177; 80048; 80053; 81003; 81015; 81025; 82607; 82728; 82746; 83540; 83550; 83605; 83690; 85025; 85046; 85060; 86850; 86900; 86901; 87040; 87077; 87086; 87149; 87186; 87804; 88305; 96361; 96365; 96375; J0692; J0696; J1650; J1956; J2250; J2405; J2543; J2704; J7050; P9016

== ENCOUNTER 2018-08-07 19:07 | Emergency (ER) | payer OTHER, SELFPAY ==
--- NOTE | 2018-08-07 21:37 | RAD ---
3 views right wrist. History: Laceration to right forearm with glass injury to soft tissues. Evaluate for foreign bodies. AP, lateral and oblique views right wrist demonstrates no evidence of osseous lesions. Soft tissue la ceration seen to the dorsal aspect of the distal right forearm soft tissues. No evidence of radiopaque foreign body seen. IMPRESSION: No evidence of radiopaque foreign body seen.
[2018-08-07] MEDS ORDERED: Adacel (T-DAP) 0.5 ML SYRINGE ONE (22:45)
== END 2018-08-07 22:57 | disposition home or self-care (01) ==
LOC: ERS 19:07
DX: O9A.219 Injury, poisoning and certain other consequences of external causes complicating pregnancy, unspecified trimester (principal); S61.511A Laceration without foreign body of right wrist, initial encounter; O99.519 Diseases of the respiratory system complicating pregnancy, unspecified trimester; J45.909 Unspecified asthma, uncomplicated; O99.019 Anemia complicating pregnancy, unspecified trimester; O99.330 Smoking (tobacco) complicating pregnancy, unspecified trimester; W25.XXXA Contact with sharp glass, initial encounter
CPT/HCPCS: 12002; 90471; 90715

== ENCOUNTER 2018-11-02 13:48 | Day surgery (SDC) | payer OTHER ==
--- NOTE | 2018-11-02 14:07 | PDOC.FPROB ---
FMR OB H&P: HPI - History of Present Illness Chief Complaint: Iron infusion Indentification: 23 yo at 20.5 wks History of Present Illness: 23 year old at 20.5 wks by LMP/11.4 wk sono presents for iron transfusion. Patient with history significant for anemia in past requiring blood transfusion . Patient endorses fatigue and some weakness. She denies vaginal bleeding, vaginal discharge, LoF, or abdominal cramping. Patient endorses movement. 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 KNITTER History: Denies history of STD's - Surgical History Sx History: Denies - Social History Social History: Denies alcohol, tobacco, or drug use - Family History Family History: Denies significant FH FMR OB H&P: Medications - Current Home Medications: Medication Instructions Recorded Confirmed Type Mv-Mn/Iron/FA/Herbal/Digestive 1 tablet PO DAILY #30 tablet 01/21/18 Rx [ One Tablet] Allergies/Adverse Reactions: Allergies Allergy/AdvReac Type Severity Reaction Status Date / Time No Known Allergies Allergy Verified 05/15/14 19:54 FMR OB H&P: ROS - Review of Systems General: denies: fever/chills, weight/appetite/sleep changes Eyes: denies: vision changes, scotomas ENT: denies: nasal congestion, rhinorrhea, sore throat Cardiovascular: denies: chest pain, palpitation, edema Respiratory: denies: cough, congestion, shortness of breath Gastrointestinal: reports: nausea. denies: abdominal pain, indigestion, diarrhea, constipation Genitourinary (Female): denies: dysuria, vaginal discharge, vaginal pain, vaginal bleeding, contractions Musculoskeletal: denies: pain, stiffness Neurologic: reports: weakness. denies: numbness Integumentary: denies: itching, rash, lesions Hematologic/Lymphatic: denies: prolonged or excessive bleeding Psychological: denies: depression, anxiety FMR OB H&P: Physical Exam - Physical Exam General: NAD, awake, alert and oriented HEENT: EOMI, MMM, grossly normal vision, grossly normal hearing Heart: RRR, no murmurs/rubs/gallops General: CTAB, no respiratory distress Abdomen: soft, gravid, non-tender Musculoskeletal: normal gait and station, pulses present, FROM in all four extremities Neurological: no tremor, no focal deficit Skin: no rash, capillary refill <2 seconds Lymphatic: no unusual bruising or bleeding, no purpura Psychiatric: intact recent and remote memory, good judgement and insight FMR OB H&P: A/P - Problem List (1) Second trimester Current Visit: Yes Status: Acute Code(s): Z34.92 - ENCNTR FOR SUPRVSN OF NORMAL PREG, UNSP, SECOND TRIMESTER (2) Anemia affecting Current Visit: No Status: Acute Code(s): O99.019 - ANEMIA COMPLICATING , UNSPECIFIED TRIMESTER Disposition: 23 y/o at 20.5 wks presents for iron infusion. H/H .04/13. 1. Anemia affecting - Iron infusion today - Starting H/H .04/13. - Hx of anemia in prior with PPH requiring blood transfusion - Mildly symptomatic - Repeat CBC outpatient in 3-4 weeks 2. Second trimester sIUP - Routine PNC 3. Asthma - Well controlled Dispo: Admit for iron infusion. Plan for d/c home after iron transfusion. Discussion: Date/Time: 11/02/18 2413 This H&P was discussed with Dr. Price who agrees with the above documentation and plan. Signature: Hina Mcdonough DO PGY-3 Addendum - Attending - Attending Attestation Date/Time: 11/02/18 0524 I personally evaluated the patient and discussed the management with Dr. Mcdonough I agree with the History, Examination, Assessment and Plan documented above with any addition or exceptions noted below. 23 yo female at 20.5 wks by LMP/11.4 wk sono here for iron infusion for presumed iron def anemia. Will obs for infusion if needed. Unable to locate appropriate work up. Patient noted to have PPH requiring transfusion with last . Workup started. Will follow up on labs. Based on CBC appears iron def but thalassemia has not been completely ruled out. Will look for electrophoresis. If remains iron def need to address why this continues. Dispo dependant on infusion and labs. Marlena
[2018-11-02] MEDS ORDERED: Acetaminophen 500 MG TAB PO PRN (14:09)
[2018-11-02] MEDS ORDERED: Iron Sucrose Complex 500 MG in Sodium Chloride 0.9% 250 ML 250 ML IVPB SCH (14:09)
[2018-11-02 15:26] VITALS: BMI 21.0
[2018-11-02] MEDS ORDERED: diphenhydrAMINE 50 MG/ML VIAL IVP SCH (19:15)
== END 2018-11-02 20:35 | disposition home or self-care (01) ==
LOC: L&D/OP 13:48
PROVIDERS: ATTEND Student in an Organized Health Care Education/Training Program
DX: O99.012 Anemia complicating pregnancy, second trimester (principal); O99.512 Diseases of the respiratory system complicating pregnancy, second trimester; J45.909 Unspecified asthma, uncomplicated; Z3A.20 20 weeks gestation of pregnancy
CPT/HCPCS: 36415; 82728; J1200; J1756; J7050

== ENCOUNTER 2020-06-29 12:19 | Emergency (ER) | payer MEDICAID, OTHER ==
[2020-06-29] MEDS ORDERED: Ibuprofen 200 MG TAB ONE (14:40)
[2020-06-29 20:10] LABS: SARS-CoV-2 PCR by NAA Not Detected (NotDetected)
== END 2020-06-29 14:49 | disposition home or self-care (01) ==
LOC: ERS 12:19
DX: J20.9 Acute bronchitis, unspecified (principal); J45.909 Unspecified asthma, uncomplicated; Z20.822 Contact with and (suspected) exposure to COVID-19; F17.290 Nicotine dependence, other tobacco product, uncomplicated
CPT/HCPCS: 71045; 87635; U0003; U0005

== ENCOUNTER 2021-04-03 11:40 | Emergency (ER) | payer MEDICAID ==
[2021-04-04 00:38] LABS: SARS-CoV-2 PCR by NAA Not Detected (NotDetected)
== END 2021-04-03 13:25 | disposition home or self-care (01) ==
LOC: ERS 11:40
DX: B34.9 Viral infection, unspecified (principal); J45.909 Unspecified asthma, uncomplicated; Z20.822 Contact with and (suspected) exposure to COVID-19
CPT/HCPCS: 99283; U0003; U0005

== ENCOUNTER 2021-06-24 10:16 | Emergency (ER) | payer OTHER ==
[2021-06-24 11:11] LABS: #Lymphocytes 1.5 thou/uL (1.20-3.40); #Monocytes 0.5 thou/uL (0.11-0.59); #Neutrophils 5.3 thou/uL (1.40-6.50); %Basophils 0.2 % (0.0-1.0); %Eosinophils 0.3 % (0.0-10.0); %Lymphocytes 20.1 % (21.0-51.0); %Monocytes 7.3 % (0.0-10.0); %Neutrophils 72.1 % (42.0-75.0); Hemoglobin 7.4 g/dL (12.0-16.0); Mean Corpuscular HGB CONC 29.1 g/dL (32.0-36.0); Mean Corpuscular Volume 65.3 fL (78.0-98.0); Mean Platelet Volume 5.9 fL (7.4-10.4); Platelet Count 269 thou/uL (130-400); RBC Distribution Width 21.1 % (11.5-14.5); Red Blood Cell (RBC) Count 3.91 mill/uL (4.20-5.40); White Blood Cell (WBC) Count 7.4 thou/uL (4.8-10.8)
[2021-06-24] MEDS ORDERED: Pantoprazole 40 MG VIAL ONE (11:15)
[2021-06-24 11:29] LABS: ALT (SGPT) Less than 7 U/L (8-55); AST (SGOT) 12 U/L (5-34); Albumin 3.5 g/dL (3.5-5.0); Alkaline Phosphatase 53 U/L (40-110); Anion Gap 11 mmol/L (10-20); BUN (Urea Nitrogen) 10 mg/dL (7.0-18.7); Bilirubin, Total 0.4 mg/dL (0.2-1.2); Calc. Creatinine Clearance 0 mL/min (70-130); Calcium 8.5 mg/dL (7.8-10.44); Carbon Dioxide 21 mmol/L (22-29); Chloride 106 mmol/L (98-107); Globulin 3.1 g/dL (2.4-3.5); Glucose 81 mg/dL (70-105); Lipase 11 U/L (8-78); Potassium 3.5 mmol/L (3.5-5.1); Protein, Total 6.6 g/dL (6.0-8.3); Sodium 134 mmol/L (136-145)
[2021-06-24 11:33] LABS: Anisocytosis SLIGHT = 6-15 cells (100X) (0-5/hpf); Elliptocytes SLIGHT = 2-5 cells (100X) (0-1/hpf); Hypochromia SLIGHT = 6-15 cells (100X) (0-5/hpf); MDiff Complete? YES; Microcytosis SLIGHT = 6-15 cells (100X) (0-5/hpf); Ovalocytes SLIGHT = 2-5 cells (100X) (0-1/hpf); Platelet Morphology Comment Appears Adequate; Poikilocytosis SLIGHT = 6-15 cells (100X) (0-5/hpf); Polychromasia MODERATE = 3-4 cells (100X) (0-2/hpf); Target Cells SLIGHT = 2-5 cells (100X) (0-1/hpf)
[2021-06-24 12:07] LABS: Bacteria/HPF None Seen HPF (None Seen); Bilirubin Negative (Negative); Blood, Urine Negative (Negative); Clarity Clear (Clear); Glucose, Urine (Dipstick) Normal (Negative); Ketone, Urine Negative (Negative); Leukocyte 250 Leu/uL (Negative); Nitrite Negative (Negative); Protein, Urine (Dipstick) Negative (Neg-Trace); RBC/HPF 0-3 HPF (0-3); Specific Gravity, Urine 1.023 (1.002-1.036); Urobilinogen Normal mg/dL (Less than 2); WBC/HPF 0-3 HPF (0-3)
== END 2021-06-24 13:22 | disposition home or self-care (01) ==
LOC: ERS 10:16
DX: O99.612 Diseases of the digestive system complicating pregnancy, second trimester (principal); K29.70 Gastritis, unspecified, without bleeding; O99.012 Anemia complicating pregnancy, second trimester; D64.9 Anemia, unspecified; O99.512 Diseases of the respiratory system complicating pregnancy, second trimester; J45.909 Unspecified asthma, uncomplicated; O99.332 Smoking (tobacco) complicating pregnancy, second trimester; F17.210 Nicotine dependence, cigarettes, uncomplicated
CPT/HCPCS: 36415; 80053; 81003; 81015; 83690; 85025; 96374; C9113

== ENCOUNTER 2022-05-23 18:54 | Emergency (ER) | payer OTHER ==
[2022-05-23] MEDS ORDERED: Acetaminophen 325 MG TAB ONE (19:26)
[2022-05-23 19:55] LABS: Bacteria/HPF 3+ HPF (None Seen); Bilirubin Negative (Negative); Blood, Urine Negative (Negative); Clarity Clear (Clear); Glucose, Urine (Dipstick) Normal (Negative); Ketone, Urine Negative (Negative); Leukocyte 500 Leu/uL (Negative); Mucous/LPF Rare LPF (<2+); Nitrite Negative (Negative); Protein, Urine (Dipstick) 30 mg/dL (Neg-Trace); RBC/HPF 0-3 HPF (0-3); Renal Epithelial 0-3 HPF (None Seen); Specific Gravity, Urine 1.027 (1.002-1.036); Urobilinogen 12 mg/dL (Less than 2); WBC/HPF 21-50 HPF (0-3); pH, Urine 6.5 (5.0-9.0)
[2022-05-23 20:41] LABS: #Lymphocytes 2.9 thou/uL (1.20-3.40); #Monocytes 1.1 thou/uL (0.11-0.59); #Neutrophils 5.5 thou/uL (1.40-6.50); %Basophils 0.1 % (0.0-1.0); %Eosinophils 0.1 % (0.0-10.0); %Lymphocytes 30.5 % (21.0-51.0); %Monocytes 11.1 % (0.0-10.0); %Neutrophils 58.2 % (42.0-75.0); Mean Corpuscular HGB CONC 31.4 g/dL (32.0-36.0); Mean Corpuscular Hemoglobin 23.3 pg (27.0-31.0); Mean Corpuscular Volume 74.2 fl (78.0-98.0); Mean Platelet Volume 10.4 fL (7.4-10.4); Platelet Count 249 10x3/uL (130-400); Red Blood Cell (RBC) Count 4.29 mill/uL (4.20-5.40); White Blood Cell (WBC) Count 9.4 10x3/uL (4.8-10.8)
[2022-05-23 20:46] LABS: BHCG - Serum Negative (NEGATIVE); Pregs Control Background? CLEAR/WHITE (CLR/WHITE); Pregs Control Bar Appear? YES (CONTROL BAR)
[2022-05-23 21:03] LABS: ALT (SGPT) 29 U/L (8-55); AST (SGOT) 40 U/L (5-34); Albumin 3.9 g/dL (3.5-5.0); Alkaline Phosphatase 100 U/L (40-110); Anion Gap 12 mmol/L (10-20); BUN (Urea Nitrogen) 9 mg/dL (7.0-18.7); Bilirubin, Total 0.3 mg/dL (0.2-1.2); Calc. Creatinine Clearance 0 mL/min (70-130); Calcium 8.7 mg/dL (7.8-10.44); Carbon Dioxide 23 mmol/L (22-29); Chloride 102 mmol/L (98-107); Estimated GFR 123; Globulin 3.3 g/dL (2.4-3.5); Glucose 85 mg/dL (70-105); Lipase 18 U/L (8-78); Potassium 3.1 mmol/L (3.5-5.1); Protein, Total 7.2 g/dL (6.0-8.3); Sodium 134 mmol/L (136-145)
[2022-05-23] MEDS ORDERED: cefTRIAXone\\ROCEPHIN 500 MG VIAL ONE (21:56)
[2022-05-23] MEDS ORDERED: Lidocaine 1% PF 5 ML VIAL ONE (21:57)
[2022-05-23 23:43] LABS: Chlam.trachomatis by PCR,Urine Not Detected (NotDetected); GC N.gonorrhoeae PCR,UrineVOID DETECTED (NotDetected)
== END 2022-05-23 22:25 | disposition home or self-care (01) ==
LOC: ERS 18:54
DX: R10.2 Pelvic and perineal pain (principal); F17.210 Nicotine dependence, cigarettes, uncomplicated
CPT/HCPCS: 36415; 80053; 81003; 81015; 83690; 84703; 85025; 87491; 87591; 96372; 99284; J0696

== ENCOUNTER 2024-01-30 03:33 | Inpatient (IN) | payer SELFPAY ==
[2024-01-30 04:38] LABS: Pregnancy Test - Urine (BHCG) Negative (Negative)
[2024-01-30 04:40] LABS: Pregu Control Background? CLEAR/WHITE (CLR/WHITE); Pregu Control Bar Appear? YES (CONTROL BAR)
[2024-01-30] MEDS ORDERED: Ketorolac Tromethamine 30 MG (1 mL) VIAL ONE (04:47)
[2024-01-30] MEDS ORDERED: Acetaminophen 500 MG TAB ONE (04:47)
[2024-01-30 04:49] LABS: Bacteria/HPF 4+ HPF (None Seen); Bilirubin Negative (Negative); Blood, Urine 2+ (Negative); CAUTI Indications for Culture Dysuria,urgency,freq; Clarity Extra Turbid (Clear); Glucose, Urine (Dipstick) Normal (Negative); Ketone, Urine 40 mg/dL (Negative); Leukocyte 500 Leu/uL (Negative); Nitrite Negative (Negative); Protein, Urine (Dipstick) 70 mg/dL (Neg-Trace); RBC/HPF 21-50 HPF (0-3); Specific Gravity, Urine 1.003 (1.002-1.036); Squamous Epithelial 0-3 HPF (0-3); Urobilinogen Normal mg/dL (Less than 2); WBC/HPF Greater than 50 HPF (0-3); Yeast-Budding 1+ HPF (None Seen); pH, Urine 6.5 (5.0-9.0)
[2024-01-30 04:50] LABS: Specific Gravity 1.003 (1.002-1.036); Urine Culture Reflex Yes Yes
[2024-01-30] MEDS ORDERED: cefTRIAXone (ROCEPHIN) 1 GM VIAL ONE (05:11)
[2024-01-30 05:18] LABS: Hemoglobin 4.7 g/dL (12.0-16.0); Mean Corpuscular Hemoglobin 13.5 pg (27.0-31.0); Mean Corpuscular Volume 54.4 fL (78.0-98.0); Platelet Count 348 10x3/uL (130-400); RBC Distribution Width 22.6 % (11.5-14.5); Red Blood Cell (RBC) Count 3.49 mill/uL (4.20-5.40)
[2024-01-30 05:25] LABS: #Basophils Less than 0.03 10x3/uL (0.0-0.2); #Eosinophils Less than 0.03 10x3/uL (0.0-0.7); %Basophils 0.1 % (0.0-1.0); %Lymphocytes 13.9 % (21.0-51.0); %Monocytes 14.3 % (0.0-10.0); %Neutrophils 71.1 % (42.0-75.0)
[2024-01-30 05:30] LABS: ALT (SGPT) 8 U/L (8-55); AST (SGOT) 14 U/L (5-34); Alkaline Phosphatase 73 U/L (40-110); Anion Gap 15 mmol/L (10-20); BUN (Urea Nitrogen) 7 mg/dL (7.0-18.7); Calc. Creatinine Clearance 0 mL/min (70-130); Calcium 8.8 mg/dL (7.8-10.44); Carbon Dioxide 20 mmol/L (22-29); Chloride 100 mmol/L (98-107); Estimated GFR 93; Globulin 3.7 g/dL (2.4-3.5); Glucose 100 mg/dL (70-105); Potassium 3.4 mmol/L (3.5-5.1); Protein, Total 7.7 g/dL (6.0-8.3); Sodium 132 mmol/L (136-145)
[2024-01-30] MEDS ORDERED: CALCIUM GLUC 1 GM/NS 50 ML IV Bag ONE (05:44)
[2024-01-30 06:05] LABS: Elliptocytes SLIGHT = 2-5 cells HPF (0-1); Hypochromia MODERATE=16-30 cells HPF (0-5); Microcytosis MODERATE=15-30 cells HPF (0-5); Platelet Adequacy Comment Platelets Normal; Polychromasia SLIGHT = 2-3 cells HPF (0-2); Reflex for Review?? YES; Target Cells SLIGHT = 2-5 cells HPF (0-1); Tear Drops SLIGHT = 2-5 cells HPF (0-1)
[2024-01-30 06:36] LABS: Mean Corpuscular HGB CONC 24.7 g/dL (32.0-36.0)
[2024-01-30] MEDS ORDERED: Ondansetron ODT 4 MG TAB SL PRN (07:45)
[2024-01-30] MEDS ORDERED: Ondansetron PF 4 MG/2 ML Vial IVP PRN (07:45)
[2024-01-30] MEDS ORDERED: Acetaminophen/Codeine 30-300mg Tablet PO PRN ×2 (08:48)
[2024-01-30] MEDS ORDERED: Ketorolac Tromethamine 30 MG (1 mL) VIAL IVP PRN (09:19)
[2024-01-30 10:54] VITALS: BMI 23.6
[2024-01-30] MEDS: Acetaminophen 325 MG TAB PO PRN (13:27)
[2024-01-30] MEDS: Sodium Chloride 0.9% 1,000 ML IV SCH ×2 (15:22→17:24)
[2024-01-30] MEDS: Ibuprofen 600 MG TAB PO PRN (15:35)
[2024-01-30] MEDS: Acetaminophen 325 MG TAB PO SCH (17:55)
[2024-01-30 19:03] LABS: Hematocrit 22.4 % (36.0-47.0); Hemoglobin 5.9 g/dL (12.0-16.0); Platelet Count 343 10x3/uL (130-400)
[2024-01-30] MEDS ORDERED: Morphine 2 MG/ML VIAL SLOW IVP PRN (20:40)
[2024-01-30] MEDS ORDERED: Morphine 4 MG/ML VIAL SLOW IVP PRN (20:40)
[2024-01-31] MEDS: Acetaminophen 500 MG TAB PO PRN
[2024-01-31 05:57] LABS: #Basophils 0.03 10x3/uL (0.0-0.2); #Eosinophils Less than 0.03 10x3/uL (0.0-0.7); %Basophils 0.2 % (0.0-1.0); %Lymphocytes 8.8 % (21.0-51.0); %Monocytes 13.7 % (0.0-10.0); %Neutrophils 76.1 % (42.0-75.0); Hematocrit 23.8 % (36.0-47.0); Hemoglobin 6.6 g/dL (12.0-16.0); Mean Corpuscular HGB CONC 27.7 g/dL (32.0-36.0); Mean Corpuscular Volume 61.3 fL (78.0-98.0); Platelet Count 277 10x3/uL (130-400); RBC Distribution Width 25.4 % (11.5-14.5); Red Blood Cell (RBC) Count 3.88 mill/uL (4.20-5.40)
[2024-01-31 06:06] LABS: Anion Gap 10 mmol/L (10-20); BUN (Urea Nitrogen) 6 mg/dL (7.0-18.7); Calc. Creatinine Clearance 119 mL/min (70-130); Calcium 7.7 mg/dL (7.8-10.44); Carbon Dioxide 18 mmol/L (22-29); Chloride 110 mmol/L (98-107); Estimated GFR 125; Glucose 94 mg/dL (70-105); Potassium 2.8 mmol/L (3.5-5.1); Sodium 135 mmol/L (136-145)
[2024-01-31] MEDS: Potassium Chloride 20 MEQ TAB PO SCH (09:21)
[2024-01-31] MEDS: cefTRIAXone\\ROCEPHIN 1 GM in Sodium Chloride 0.9% 100 ML IVPB SCH (09:23)
[2024-01-31] MEDS: Sodium Ferric Gluconate 250 MG in Sodium Chloride 0.9% 250 ML 250 ML IVPB SCH (12:07)
[2024-01-31] MEDS: Potassium Bicarbonate/Cit Ac 20 MEQ TAB PO SCH (13:51)
[2024-01-31 18:02] LABS: Hematocrit 30.2 % (36.0-47.0); Hemoglobin 8.6 g/dL (12.0-16.0)
[2024-01-31 18:25] LABS: Anion Gap 15 mmol/L (10-20); BUN (Urea Nitrogen) 5 mg/dL (7.0-18.7); Calc. Creatinine Clearance 107 mL/min (70-130); Calcium 8.6 mg/dL (7.8-10.44); Carbon Dioxide 17 mmol/L (22-29); Chloride 108 mmol/L (98-107); Estimated GFR 120; Glucose 86 mg/dL (70-105); Magnesium 2.1 mg/dL (1.6-2.6); Potassium 4.5 mmol/L (3.5-5.1); Sodium 135 mmol/L (136-145)
[2024-02-01 06:36] LABS: Anion Gap 12 mmol/L (10-20); BUN (Urea Nitrogen) 4 mg/dL (7.0-18.7); Calc. Creatinine Clearance 111 mL/min (70-130); Calcium 8.8 mg/dL (7.8-10.44); Carbon Dioxide 19 mmol/L (22-29); Chloride 105 mmol/L (98-107); Estimated GFR 123; Glucose 101 mg/dL (70-105); Potassium 3.8 mmol/L (3.5-5.1); Sodium 132 mmol/L (136-145)
[2024-02-01 06:46] LABS: #Basophils 0.05 10x3/uL (0.0-0.2); #Eosinophils Less than 0.03 10x3/uL (0.0-0.7); %Basophils 0.3 % (0.0-1.0); %Eosinophils 0.1 % (0.0-10.0); %Lymphocytes 11.5 % (21.0-51.0); %Monocytes 14.7 % (0.0-10.0); %Neutrophils 71.9 % (42.0-75.0); Hematocrit 26.8 % (36.0-47.0); Hemoglobin 7.7 g/dL (12.0-16.0); Mean Corpuscular HGB CONC 28.7 g/dL (32.0-36.0); Mean Corpuscular Hemoglobin 18.3 pg (27.0-31.0); Mean Corpuscular Volume 63.7 fL (78.0-98.0); Platelet Count 291 10x3/uL (130-400); RBC Distribution Width 28.1 % (11.5-14.5); Red Blood Cell (RBC) Count 4.21 mill/uL (4.20-5.40)
[2024-02-01 11:37] VITALS: BP 102/64; TEMP 98.2
== END 2024-02-01 16:35 | disposition home or self-care (01) | DRG 872 ==
LOC: ERS 03:33 → T4-A 07:54 → OBSVTOIN 01-31 16:45
PROVIDERS: ADMIT Student in an Organized Health Care Education/Training Program; ATTEND Internal Medicine
PROC: 30233N1 Transfusion of Nonautologous Red Blood Cells into Peripheral Vein, Percutaneous Approach (ICD-10-PCS; principal; 2024-01-31)
PROC: 3E03329 Introduction of Other Anti-infective into Peripheral Vein, Percutaneous Approach (ICD-10-PCS; 2024-01-31)
DX: A41.51 Sepsis due to Escherichia coli [E. coli] (principal); N10 Acute pyelonephritis; E87.1 Hypo-osmolality and hyponatremia; F17.210 Nicotine dependence, cigarettes, uncomplicated; D50.9 Iron deficiency anemia, unspecified; Z79.899 Other long term (current) drug therapy; F17.290 Nicotine dependence, other tobacco product, uncomplicated; E87.6 Hypokalemia
CPT/HCPCS: 36415; 36430; 74176; 76770; 80048; 80053; 81001; 81025; 83605; 83735; 85025; 85060; 86850; 86900; 86901; 87040; 87077; 87086; 87186; 96365; 96375; 96376; G0378; J0613; J0696; J1885; J2916; J7030; J7050; P9016

== ENCOUNTER 2025-01-02 13:24 | Emergency (ER) | payer OTHER, SELFPAY | END 2025-01-02 14:15 | disposition home or self-care (01) | LOC: ERS 13:24 | DX: H65.22 Chronic serous otitis media, left ear (principal); D64.9 Anemia, unspecified; F17.210 Nicotine dependence, cigarettes, uncomplicated; Z79.899 Other long term (current) drug therapy | CPT/HCPCS: 99282 ==